=== PATIENT | female | born 1950 | race Caucasian/White ===

== ENCOUNTER → 2017-12-06 11:18 | Outpatient (CLI) | payer MEDICARE, OTHER, SELFPAY ==
--- NOTE | 2017-12-06 11:24 | DI.MG.S_ITS ---
BILATERAL DIGITAL SCREENING MAMMOGRAM 3D/2D WITH CAD: 12/06/2017 CLINICAL: Routine screening. Comparison is made to exams dated: 07/14/2016 mammogram - [facility], 08/02/2011 mammogram - [facility], and 09/19/2005 mammogram - [facility]. The tissue of both breasts is heterogeneously dense. This may lower the sensitivity of mammography. Current study was also evaluated with a Computer Aided Detection (CAD) system. There is 0.5 cm oval low density asymmetry with an indistinct and circumscribed margin in the right breast anterior depth medial region seen on the craniocaudal view only. There is 0.5 cm oval low density asymmetry with an obscured and circumscribed margin in the left breast middle depth central to the nipple seen on the craniocaudal view only. No other significant masses or calcifications are seen in either breast. IMPRESSION: INCOMPLETE: NEEDS ADDITIONAL IMAGING EVALUATION The 0.5 cm oval low density asymmetry in the right breast anterior depth medial region seen on the craniocaudal view only is indeterminate. Mediolateral and spot compression views as well as additional views with possible ultrasound are recommended. The 0.5 cm oval low density asymmetry in the left breast middle depth central to the nipple seen on the craniocaudal view only is indeterminate. Mediolateral and spot compression views as well as additional views with possible ultrasound are recommended. This exam was interpreted at Station ID: [id number]. NOTE: For mammograms, a report in lay terms will be sent to the patient. Approximately 15% of breast malignancies will not be visualized mammographically. In the management of a palpable breast mass, a negative mammogram must not discourage biopsy of a clinically suspicious lesion. Electronically Signed By: Tanner manuel/shantanu:12/06/2017 15:49:34 letter sent: Additional Imaging Needed ACR BI-RADS Category 0: Incomplete 3340F
== END ==
PROVIDERS: Visit Provider Internal Medicine
DX: Z12.31 Encounter for screening mammogram for malignant neoplasm of breast (principal)
CPT/HCPCS: 77063; 77067

== ENCOUNTER → 2017-12-22 09:56 | Outpatient (CLI) | payer MEDICARE, OTHER, SELFPAY ==
--- NOTE | 2017-12-22 09:57 | DI.US.S_ITS ---
PROCEDURE: US PELVIC COMPLETE INDICATIONS: h/o endometrial thickening TECHNIQUE: Real-time scanning was performed of the pelvic organs, with image documentation. Additional endovaginal scanning was necessary due to incomplete visualization of the adnexal and endometrial structures by transabdominal scanning. COMPARISON: [facility], , PELVIC COMPLETE, 09/01/2016, 8:17. [facility], , PELVIC COMPLETE, 07/17/2015, 7:58. FINDINGS: Transabdominal scanning: Limited scanning through the kidneys shows no hydronephrosis. No pathologic free abdominal or pelvic fluid. Endovaginal scanning: Uterus: Uterus is normal in size at 3.0 x 3.5 x 5.8 cm, anteverted. The endometrium measures 3.0 mm in combined thickness. There is a right anterior intramural 1.7 cm maximal dimension fibroid. Ovaries: Right ovary not seen, left ovary measures 1.4 x 1.6 x 1.3 cm in maximal dimensions. IMPRESSION: No abnormal endometrial lining thickness currently, with the endometrial lining now measuring only 3 mm. An 1.7 cm right anterior intramural fibroid is incidentally noted. The right ovary could not be located despite both transabdominal and transvaginal scanning but no adnexal cystic or solid mass is found. The left ovary appears normal. Dictated by: Stone Rodriguez M.D. on 12/22/2017 at 11:58 Approved by: Stone Rodriguez M.D. on 12/22/2017 at 12:00
== END ==
PROVIDERS: PCP Internal Medicine; Visit Provider Internal Medicine
DX: D25.1 Intramural leiomyoma of uterus (principal); R93.89 Abnormal findings on diagnostic imaging of other specified body structures; Z78.0 Asymptomatic menopausal state
CPT/HCPCS: 76830; 76856

== ENCOUNTER → 2018-06-29 09:42 | Outpatient (CLI) | payer MEDICARE, OTHER, SELFPAY | PROVIDERS: PCP Internal Medicine; Visit Provider Internal Medicine | DX: Z78.0 Asymptomatic menopausal state (principal) | CPT/HCPCS: 77080 ==

== ENCOUNTER 2018-09-12 07:54 | Day surgery (SDC) | payer MEDICARE, OTHER, SELFPAY ==
[2018-09-12] VITALS (8 sets, daily range): BP systolic 104–150; BP diastolic 65–84; PULSE 53–68; RESP 10–16; TEMP 36.2–36.7; O2SAT 97–100; BMI 21.4
[2018-09-12] MEDS: SODIUM CHLORIDE 0.9% 1,000 ML 100 ML IV (08:37)
--- NOTE | 2018-09-12 09:45 | PM.HP.1 ---
History of Present Illness Date Patient Seen: 09/12/18 Time Patient Seen: 09:45 Chief complaint: [id number] Narrative: History of colon polyps Patient History Medical History (Updated 12/12/17 @ 14:14 by LONNIE Pedraza) Alopecia (Chronic) Hearing deficit (Chronic) Hypothyroidism (Chronic ~2011) Thickened endometrium (Chronic ~2012) Vision disorder (Chronic) Anemia (Resolved) Measles (Resolved) Mumps (Resolved) Surgical History (Updated 12/11/17 @ 21:07 by Sally Wright) Anesthesia (Resolved) Trigger thumb of both thumbs (Resolved) Status post dilation and curettage (~2013) Family History (Updated 12/11/17 @ 21:10 by Sally Wright) Brother Hypothyroidism (acquired) Sister Hypothyroidism (acquired) Grandmother Mental health problem Mother ETOHism Smoker COPD (chronic obstructive pulmonary disease) Father ETOHism Social History household members: spouse Smoking Status: Never smoker Family & Social History Family History (Updated 12/11/17 @ 21:10 by Sally Wright) Brother Hypothyroidism (acquired) Sister Hypothyroidism (acquired) Grandmother Mental health problem Mother ETOHism Smoker COPD (chronic obstructive pulmonary disease) Father ETOHism Social History: household members spouse Tobacco & Substance use: Smoking Status Never smoker Meds Home Medications Medication Instructions Recorded Confirmed Type [evamist] SEE INSTRUCTIONS #1 bot 09/24/15 12/12/17 History Evamist 0 TOPICAL SEE INSTRUCTIONS #1 bot 11/26/15 12/12/17 Rx progesterone micronized 200 mg 200 mg PO QDAY #90 cap 11/13/17 12/12/17 Rx capsule Allergies Allergy/AdvReac Type Severity Reaction Status Date / Time No Known Drug Allergies Allergy Verified 09/12/18 08:22 Exam Vital Signs (past 8 hours): - 09/12/18 08:32 Temperature 98.0 F Pulse Rate 68 Respiratory Rate 16 Blood Pressure 150/84 H Pulse Oximetry 100 Oxygen Delivery Method Room Air Narrative Exam Narrative: Oropharynx free of lesions Chest clear to auscultation and percussion Cardiac exam reveals no S3 or murmur Assessment & Plan Assessment & Plan narrative: History of colon polyps need for follow-up colonoscopy. Risks, benefits, alternatives have been explained.
--- NOTE | 2018-09-12 09:46 | PM.OP.ENDO ---
Operative Date/Time/Diagnoses Date of procedure: 09/12/18 Time of procedure: 09:46 Pre-op diagnosis: See indication Procedure & Clinicians Study performed: Colonoscopy Same procedure as scheduled: Yes Indications: History of colon polyps Surgeon: Calixto Chavira Procedure Notes Procedure in detail: After informed consent was obtained the patient was placed in left lateral decubitus position. The video colonoscope was introduced the rectum slowly advanced to the cecum. On slow withdrawal mucosa was carefully examined. The scope was removed. The patient tolerated the procedure well. Preparation was good Blood loss none Complications none Sedation Total sedation time 23 minutes Versed 6 mg fentanyl 100 mg IV titration Findings 1. Normal colonoscopy cecum Patient should have follow-up colonoscopy 5 years
[2018-09-12] MEDS: fentaNYL 250 MCG/5 ML INJ IV (09:55)
[2018-09-12] MEDS: MIDAZOLAM 5 MG/5 ML VIAL IV (09:55)
--- NOTE | 2018-09-12 10:35 | SUR.PHASEI ---
1034 Tolerating juice well, asking appropriate questions, preparing to transfer to [facility]. No flatus, states that she is burping.
--- NOTE | 2018-09-12 10:44 | SUR.PHASEII ---
nauseated, HOB elevated, quease-ease given.
== END 2018-09-12 12:09 | disposition home or self-care (01) ==
LOC: ENDO 07:56
PROVIDERS: PCP Internal Medicine; Visit Provider Internal Medicine Gastroenterology
PROC: 0DJD8ZZ Inspection of Lower Intestinal Tract, Via Natural or Artificial Opening Endoscopic (ICD-10-PCS; CPT 45378; principal; 2018-09-12 09:30)
DX: Z86.010 Personal history of colon polyps (principal)
CPT/HCPCS: G0105; J2250; J3010

== ENCOUNTER → 2019-09-18 12:28 | Outpatient (CLI) | payer MEDICARE, OTHER, SELFPAY ==
--- NOTE | 2019-09-18 | DI.US.S_ITS ---
PROCEDURE: US PELVIC COMPLETE INDICATIONS: CHECK ENDOMETRIAL LINING; HRT TECHNIQUE: Real-time scanning was performed of the pelvic organs, with image documentation. Additional endovaginal scanning was necessary due to incomplete visualization of the adnexal and endometrial structures by transabdominal scanning. COMPARISON: [facility], , US PELVIC COMPLETE, 12/22/2017, 10:37. FINDINGS: Transabdominal scanning: Limited scanning through the kidneys shows no hydronephrosis. No pathologic free abdominal or pelvic fluid. Endovaginal scanning: Uterus: Uterus is normal in size at 6.9 x 2.8 x 4.3 cm. The endometrium measures 3.0 mm in combined thickness. 19 mm anterior intramural fibroid. Ovaries: Right ovary not visualized. Left ovary is normal measuring 1.5 x 0.9 x 1.2 cm. IMPRESSION: 1. Normal endometrial complex thickness. 2. 19 mm intramural fibroid. Dictated by: Dashawn Boss [facility] Interpreted: Balbina Lua MD on 09/18/2019 at 13:51 Approved by: Balbina Lua M.D. on 09/18/2019 at 16:20
== END ==
PROVIDERS: PCP Internal Medicine; Referring Provider Internal Medicine; Visit Provider Internal Medicine
DX: D25.1 Intramural leiomyoma of uterus (principal); Z79.890 Hormone replacement therapy
CPT/HCPCS: 76830; 76856

== ENCOUNTER → 2019-09-24 11:51 | Outpatient (CLI) | payer MEDICARE, OTHER, SELFPAY ==
--- NOTE | 2019-09-24 | DI.MG.S_ITS ---
BILATERAL DIGITAL SCREENING MAMMOGRAM 3D/2D WITH CAD: 09/24/2019 CLINICAL: Routine screening. Comparison is made to exams dated: 07/06/2018 mammogram, 12/20/2017 mammogram - [facility], 12/06/2017 mammogram - [facility], 07/14/2016 mammogram - [facility], and 08/02/2011 mammogram - [facility]. The tissue of both breasts is heterogeneously dense. This may lower the sensitivity of mammography. Current study was also evaluated with a Computer Aided Detection (CAD) system. There are new 0.5 cm grouped heterogeneous calcifications in the right breast posterior depth central to the nipple seen on the mediolateral oblique view only. No other significant masses, calcifications, or other findings are seen in either breast. IMPRESSION: INCOMPLETE: NEEDS ADDITIONAL IMAGING EVALUATION The new 0.5 cm grouped heterogeneous calcifications in the right breast are indeterminate. Additional views are recommended. This exam was interpreted at Station ID: [id number]. NOTE: For mammograms, a report in lay terms will be sent to the patient. Approximately 15% of breast malignancies will not be visualized mammographically. In the management of a palpable breast mass, a negative mammogram must not discourage biopsy of a clinically suspicious lesion. Electronically Signed By: Charli Valdez M.D. slc/:09/24/2019 15:20:25 letter sent: Additional Imaging Needed ACR BI-RADS Category 0: Incomplete 3340F
== END ==
PROVIDERS: PCP Internal Medicine; Referring Provider Internal Medicine; Visit Provider Internal Medicine
DX: Z12.31 Encounter for screening mammogram for malignant neoplasm of breast (principal)
CPT/HCPCS: 77063; 77067

== ENCOUNTER → 2019-10-02 15:33 | Outpatient (ROUT) | payer MEDICARE, OTHER, SELFPAY ==
[2019-10-02 15:45] LABS: Add Manual Diff / Slide Review NO; Basophils Absolute Auto 0 /uL (0-100); Basophils Percent Auto 0.6 % (0-2); Eosinophils Absolute Auto 0 /uL (0-450); Eosinophils Percent Auto 0.3 % (2-4); Hematocrit 40.8 % (36-46); Hemoglobin 13.8 g/dL (12.0-16.0); Lymphocytes Absolute Auto 1800 /uL (1100-4500); Lymphocytes Percent Auto 24.7 % (25-40); Mean Corpuscular HGB Conc 33.8 % (30-36); Mean Corpuscular Hemoglobin 33.6 PG (26-34); Mean Corpuscular Volume 99.2 fL (80-100); Monocytes Absolute Auto 400 /uL (0-900); Monocytes Percent Auto 5.5 % (3-14); Neutrophils Absolute Auto 4900 /uL (1500-7000); Neutrophils Percent Auto 68.9 % (50-75); Platelet Count 251 X10^3/uL (150-400); Red Blood Cell Count 4.11 X10^6/uL (4.0-5.2); Red Cell Distribution Width 13.6 % (11.6-14.8); White Blood Cell Count 7.1 X10^3/uL (4.5-11.0)
[2019-10-02 15:59] LABS: Alanine Aminotransferase 15 IU/L (<35); Albumin 4.4 g/dL (3.5-5.0); Albumin Globulin Ratio 1.5 (1.0-2.8); Alkaline Phosphatase 64 U/L (38-126); Aspartate Aminotransferase 28 IU/L (14-36); BUN Creatinine Ratio 35.7 (6-22); Bilirubin Total 0.6 mg/dL (0.2-1.3); Blood Urea Nitrogen 20 mg/dL (7-17); Calcium 10.3 mg/dL (8.4-10.2); Carbon Dioxide 26 mmol/L (22-32); Chloride 105 mmol/L (98-107); Cholesterol 208 mg/dL (140-199); Estimated Glomerular Filt Rate > 60.0 mL/min (>60); Globulin 2.9 g/dL (1.7-4.1); Glucose 100 mg/dL (80-110); HDL Cholesterol 99 mg/dL (40-60); HEMOLYSIS < 15 (0-50); LDL Cholesterol Calculated 92 mg/dL (<100); Potassium 4.2 mmol/L (3.4-5.1); Sodium 137 mmol/L (137-145); Total Protein 7.3 g/dL (6.3-8.2); Triglycerides 86 mg/dL (35-150)
[2019-10-02 16:11] LABS: C-Reactive Protein Quant < 0.5 mg/dL (<1.0)
[2019-10-02 16:26] LABS: TSH w/ Reflex to FT4 1.62 uIU/mL (0.47-4.68)
[2019-10-02 16:27] LABS: Cancer Antigen 125 5.7 U/mL (0-35)
[2019-10-02 16:47] LABS: Progesterone, Total 4.27 ng/mL
[2019-10-02 16:48] LABS: Vitamin D 25 Hydroxy (D3) 77.5 ng/mL (30.0-100.0)
[2019-10-02 17:04] LABS: Estradiol, Total 318.9 pg/mL
[2019-10-07 07:36] LABS: Percent Free Testosterone 1.03 % (0.50-2.80); Testosterone Total 242.8 ng/dL (7.0-40.0)
== END ==
PROVIDERS: PCP Internal Medicine; Visit Provider Internal Medicine
DX: N95.1 Menopausal and female climacteric states (principal); R53.83 Other fatigue; E03.9 Hypothyroidism, unspecified
CPT/HCPCS: 80053; 80061; 82306; 82627; 82670; 84144; 84402; 84403; 84443; 85025; 86140; 86304

== ENCOUNTER → 2022-06-29 07:48 | Outpatient (CLI) | payer MEDICARE, OTHER, SELFPAY ==
[2022-06-29 09:39] LABS: Add Manual Diff / Slide Review NO; Basophils Absolute Auto 0 /uL (0-100); Basophils Percent Auto 0.7 % (0-2); Eosinophils Absolute Auto 100 /uL (0-450); Eosinophils Percent Auto 1.3 % (2-4); Hematocrit 39.9 % (36-46); Hemoglobin 13.5 g/dL (12.0-16.0); Lymphocytes Absolute Auto 2100 /uL (1100-4500); Lymphocytes Percent Auto 43.7 % (25-40); Mean Corpuscular HGB Conc 33.9 % (30-36); Mean Corpuscular Hemoglobin 32.8 PG (26-34); Mean Corpuscular Volume 96.6 fL (80-100); Monocytes Absolute Auto 400 /uL (0-900); Monocytes Percent Auto 8.5 % (3-14); Neutrophils Absolute Auto 2200 /uL (1500-7000); Neutrophils Percent Auto 45.8 % (50-75); Platelet Count 254 X10^3/uL (150-400); Red Blood Cell Count 4.13 X10^6/uL (4.0-5.2); Red Cell Distribution Width 13.7 % (11.6-14.8); White Blood Cell Count 4.9 X10^3/uL (4.5-11.0)
[2022-06-29 09:54] LABS: Alanine Aminotransferase 24 IU/L (<35); Albumin 4.2 g/dL (3.5-5.0); Albumin Globulin Ratio 1.6 (1.0-2.8); Alkaline Phosphatase 58 U/L (38-126); Aspartate Aminotransferase 27 IU/L (14-36); BUN Creatinine Ratio 26.2 (6-22); Bilirubin Total 0.7 mg/dL (0.2-1.3); Blood Urea Nitrogen 16 mg/dL (7-17); Carbon Dioxide 27 mmol/L (22-32); Chloride 100 mmol/L (98-107); Cholesterol 228 mg/dL (140-199); Estimated Glomerular Filt Rate > 60 mL/min (>60); Globulin 2.7 g/dL (1.7-4.1); Glucose 91 mg/dL (80-110); HDL Cholesterol 95 mg/dL (40-60); HEMOLYSIS < 15 (0-50); LDL Cholesterol Calculated 116 mg/dL (<100); Potassium 4.2 mmol/L (3.4-5.1); Sodium 135 mmol/L (137-145); Total Protein 6.9 g/dL (6.3-8.2); Triglycerides 85 mg/dL (35-150)
[2022-06-29 09:57] LABS: HEMOLYSIS < 15 (0-50); Iron 147 ug/dL (37-170)
[2022-06-29 10:10] LABS: Percent Iron Saturation 54 % (15-50); Total Iron Binding Capacity 273 ug/dL (265-497); Transferrin 222 mg/dL (206-381)
[2022-06-29 10:25] LABS: TSH w/ Reflex to FT4 2.19 uIU/mL (0.47-4.68)
[2022-06-29 10:41] LABS: Vitamin B12 600 pg/mL (239-931)
[2022-06-30 18:03] LABS: Lead, Blood 1.2 ug/dL (0.0-3.4); Mercury, Blood 1.9 ug/L (0.0-14.9)
[2022-07-04 11:19] LABS: Arsenic 0
== END ==
PROVIDERS: PCP Family Medicine; Referring Provider Family Medicine; Visit Provider Family Medicine
DX: D64.9 Anemia, unspecified (principal); E03.9 Hypothyroidism, unspecified; E78.2 Mixed hyperlipidemia; R00.2 Palpitations; Z13.88 Encounter for screening for disorder due to exposure to contaminants; T56.91XA Toxic effect of unspecified metal, accidental (unintentional), initial encounter
CPT/HCPCS: 36415; 80053; 80061; 82175; 82607; 83540; 83550; 83655; 83825; 84443; 85025

== ENCOUNTER → 2022-07-20 09:29 | Outpatient (CLI) | payer MEDICARE, OTHER, SELFPAY ==
--- NOTE | 2022-07-20 09:31 | DI.US.S_ITS ---
PROCEDURE: US PELVIC COMPLETE INDICATIONS: EVALUATE ENDOMETRIOSIS, UTERINE FIBROIDS TECHNIQUE: Real-time scanning was performed of the pelvic organs, with image documentation. Additional endovaginal scanning was necessary due to incomplete visualization of the adnexal and endometrial structures by transabdominal scanning. COMPARISON: [facility], US, US PELVIC COMPLETE, 09/18/2019, 13:14. FINDINGS: Uterus: Uterus is anteverted and normal in size at 6.3 x 2.4 x 3.0 cm. The myometrium is heterogeneous. The endometrium measures 4 mm combined thickness. Increased echogenicity of the endometrium. Intramural fibroid the along the anterior, mid to upper uterine segment measuring 1.1 x 0.8 x 1.2 centimeter. Ovaries: Not visualized due to overlying bowel gas. Other: No pathologic free abdominal or pelvic fluid. IMPRESSION: No evidence of endometriosis. Intramural fibroid measuring 1.2 centimeter. Increased echogenicity of the endometrium, probably calcifications. The endometrium measures 4 millimeters, which is not dilated. We strive to produce accurate, complete, and clear reports of imaging services. To assist us in improving patient care, this report was composed using standard report templates and voice recognition software. Therefore, it may contain abnormal punctuation, insertions and/or omissions. Occasional wrong-word or sound-alike substitutions may occur. Though we review the report and make efforts to correct it, we do recommend that the report be read carefully in proper context to recognize any text inaccuracies. Dictated by: Alexis Washington M.D. on 07/20/2022 at 13:01 Approved by: Alexis Washington M.D. on 07/20/2022 at 13:04
--- NOTE | 2022-07-20 09:31 | DI.RAD.S_ITS ---
Bone Density Report Name: SYEDA LEE Age: 72 Sex: Female Ethnicity: White Date of : 1950 Indication: postmenopausal; screening for osteoporosis; Referring Provider: RON BUCKLEY Study: Bone densitometry was performed. Exam Date: July 20, 2022 Accession number: [id number] Bone Density: Region BMD T-score Z-score Classification AP Spine(L2, L3, L4) 1.164 0.8 3.1 Normal Femoral Neck (Left) 0.798 -0.5 1.5 Normal Total Hip (Left) 1.010 0.6 2.2 Normal Femoral Neck (Right) 0.884 0.3 2.2 Normal Total Hip (Right) 0.996 0.4 2.1 Normal Total Hip Mean 1.003 0.5 2.2 Normal World Health Organization criteria for BMD impression classify patients as: Normal (T-score at or above -1.0), Osteopenia (T-score between -1.0 and -2.5), or Osteoporosis (T-score at or below -2.5). 10-year Fracture Risk: FRAX not reported because: All T-scores for Spine Total, Hip Total, Femoral Neck at or above -1.0 Impression: The patient has normal bone mass. Discussion: BONE DENSITY IS ABOVE THE MINIMUM DESIRABLE LEVEL AT ALL SKELETAL SITES TESTED. This patient's bone mineral density is above the minimum desirable level (T-score -1.0 or better) at all sites measured. The patient should follow a healthful lifestyle (good nutrition with adequate calcium and vitamin D, and appropriate weight-bearing exercise). Follow-Up: Consider repeating this study in 5 years or sooner if there is some new clinical indication. Reported by: LINETTE DIAL M.D. on 07/20/2022 10:35:00 AM.
== END ==
PROVIDERS: PCP Family Medicine; Referring Provider Family Medicine; Visit Provider Family Medicine
DX: Z78.0 Asymptomatic menopausal state (principal); N80.9 Endometriosis, unspecified; D25.1 Intramural leiomyoma of uterus
CPT/HCPCS: 76830; 76856; 77080

== ENCOUNTER → 2023-03-06 11:37 | Outpatient (CLI) | payer MEDICARE, OTHER, SELFPAY | PROVIDERS: PCP Family Medicine; Visit Provider Nurse Practitioner | DX: N89.8 Other specified noninflammatory disorders of vagina (principal) | CPT/HCPCS: 87070; 87077; 87205 ==

== ENCOUNTER → 2023-03-28 11:36 | Outpatient (CLI) | payer MEDICARE, OTHER, SELFPAY ==
--- NOTE | 2023-03-28 11:38 | DI.US.S_ITS ---
PROCEDURE: US SOFT TISSUE HEAD AND NECK INDICATIONS: Mass R side of neck; posterior lateral to trachea TECHNIQUE: Real-time scanning was performed of the neck region of interest, with image documentation. COMPARISON: None. FINDINGS: Focused ultrasound examination of right side of the neck at patient's reported area of mass shows subtle 1.2 x 0.5 x 0.9 mm solid-appearing structure within right neck soft tissue near right submandibular gland and show no internal vascularity. This structure is similar in echotexture to adjacent subcutaneous fat. IMPRESSION: Finding may represent a small lipoma in right neck soft tissue as above. Clinical correlation and follow-up is recommended. No enlarged lymph nodes or drainable fluid collection. Dictated by: Jose Chappell M.D. on 03/28/2023 at 14:46 Approved by: Jose Chappell M.D. on 03/28/2023 at 14:47
== END ==
LOC: US 11:37
PROVIDERS: PCP Family Medicine; Referring Provider Physician Assistant; Visit Provider Physician Assistant
DX: R22.1 Localized swelling, mass and lump, neck (principal)
CPT/HCPCS: 76536

== ENCOUNTER → 2023-04-12 12:50 | Outpatient (CLI) | payer MEDICARE, OTHER, SELFPAY ==
--- NOTE | 2023-04-12 12:51 | DI.MG.S_ITS ---
BILATERAL DIGITAL SCREENING MAMMOGRAM 3D/2D WITH CAD: 04/12/2023 CLINICAL: Routine screening. Comparison is made to exams dated: 07/29/2021 ultrasound, 07/29/2021 mammogram, 12/31/2020 mammogram, 06/29/2020 mammogram, 10/03/2019 mammogram - [facility], and 09/24/2019 mammogram - [facility]. Both breasts are heterogeneously dense, which may obscure small masses (category c / 51-75% glandular tissue). Current study was also evaluated with a Computer Aided Detection (CAD) system. There are benign masses in both breasts. There also are benign calcifications in both breasts. Additionally, there is a biopsy clip in the right breast. No significant masses, calcifications, or other findings are seen in either breast. There has been no significant interval change. IMPRESSION: BENIGN There is no mammographic evidence of malignancy. A 1 year screening mammogram is recommended. Based on the Tyrer Cuzick model (a risk assessment model) the patient's lifetime risk is 6.5% and her 10 year risk is 4.9%. According to the ACR, ACS, and NCCN guidelines, an annual breast MRI exam along with mammogram is recommended if the patient's lifetime risk is 20% or greater. This exam was interpreted at Station ID: [id number]. NOTE: For mammograms, a report in lay terms will be sent to the patient. Approximately 15% of breast malignancies will not be visualized mammographically. In the management of a palpable breast mass, a negative mammogram must not discourage biopsy of a clinically suspicious lesion. Electronically Signed By: Stephen keenan/shantanu:04/13/2023 08:14:09 letter sent: Normal Exam ACR BI-RADS Category 2: Benign Finding(s) 3342F
== END ==
LOC: MAMMO 12:51
PROVIDERS: PCP Family Medicine; Referring Provider Family Medicine; Visit Provider Family Medicine
DX: Z12.31 Encounter for screening mammogram for malignant neoplasm of breast (principal); R92.333 Mammographic heterogeneous density, bilateral breasts
CPT/HCPCS: 77063; 77067

== ENCOUNTER → 2024-12-31 13:16 | Outpatient (CLI) | payer MEDICARE, OTHER, SELFPAY ==
--- NOTE | 2024-12-31 13:17 | DI.US.S_ITS ---
PROCEDURE: US PELVIC COMPLETE
== END ==
LOC: US 13:17
PROVIDERS: PCP Family Medicine; Referring Provider Family Medicine; Visit Provider Family Medicine
DX: D25.1 Intramural leiomyoma of uterus (principal); R10.20 Pelvic and perineal pain unspecified side; N88.8 Other specified noninflammatory disorders of cervix uteri
CPT/HCPCS: 76830; 76856